=== PATIENT | female | born 1985 | race Caucasian/White ===

== ENCOUNTER 2019-01-18 14:51 | Emergency (ER) | payer BC ==
[~2019-01-18] VITALS: Ht 167.6 cm; Wt 136.0 kg
[~2019-01-18 14:51] MED LIST: AMBIEN10 MG PO; AMOXICILLIN875 MG OR; DIFLUCAN150 MG OR; FLEXERIL OR; NEXIUM40 M1 PO; NO HOME MEDS; PROZAC20 M1 PO; ULTRAM50 MG OR; [UNRECOGNIZED DRUG - OTHER] PO
[2019-01-18 16:37] LABS: HEMATOCRIT 38.7 % (37.0-47.0); HEMOGLOBIN 11.6 g/dl (12.0-16.0); IMMATURE GRANULOCYTES 0.2 % (0.0-5.0); MEAN CELL VOLUME 73.6 fL CALC (80.0-100.0); MEAN CORPUSCULAR HGB 22.1 pG CALC (26.0-32.0); NEUT# 4.72 thou/uL (2.00-7.15); RED BLOOD COUNT 5.26 mill/uL (4.20-5.60); RED CELL DISTRI WIDTH 22.2 % (11.5-15.5)
[2019-01-18 17:07] LABS: ALBUMIN 4.3 g/dL (3.2-5.0); ALKALINE PHOSPHATASE 63 u/l (38-126); ANION GAP 14 (6-22 (CALC)); BILIRUBIN, TOTAL 0.4 mg/dL (0.0-1.4); BUN 16 mg/dL (7-17); BUN/CREATININE RATIO 24 (12-20 (CALC)); CARBON DIOXIDE 25 mmol/l (22-30); CHLORIDE 106 mmol/l (95-108); CREATININE 0.6 mg/dL (0.5-1.0); GFR > 60 ML/MIN (>=60 (CALC)); GFR FOR AFR.AMER. > 60 ML/MIN (>=60 (CALC)); POTASSIUM 4.5 mmol/l (3.5-5.1); SGOT/AST 32 u/l (14-36); SODIUM 140 mmol/l (137-146); TOTAL PROTEIN 7.9 g/dL (6.3-8.2)
[2019-01-18] MEDS ORDERED: ONDANSETRON4 MG PO (17:52)
[2019-01-18] MEDS ORDERED: FIORICET PO (17:52)
[2019-01-18 18:00] VITALS: BP 126/82
== END 2019-01-18 17:45 | disposition home or self-care (01) | DRG 103 ==
LOC: ED 14:51
PROVIDERS: Emergency Medicine
DX: G43.909 Migraine, unspecified, not intractable, without status migrainosus (principal)

== ENCOUNTER 2022-04-11 12:23 | Emergency (ER) | payer BC ==
[~2022-04-11] VITALS: Ht 167.6 cm; Wt 154.5 kg
[~2022-04-11 12:23] MED LIST changes: +ABILIFY5 MG PO; +AJOVY SC; +DIFLUCAN150 MG PO; +ELETRIPTAN HYDR40 MG PO; +FIORICET PO; +LISINOPRIL10 MG PO; +MECLIZINE25 MG PO; +MUPIROCIN2 % EX; +ONDANSETRON4 MG PO; +REMERON15 MG PO; +REMERON30 MG PO; +SERTRALINE HCL100 MG PO; +SERTRALINE HYD150 MG PO; +SERTRALINE100 MG PO; +SILENOR3 MG PO; +SILENOR6 MG PO; +TOPAMAX25 MG PO; +TOPAMAX50 M1 PO; +VISTARIL25 MG PO; +VISTARIL50 MG PO; +WEGOVY0.25 MG SC; +WELLBUTRIN XL150 MG PO; +ZITHROMAX TRI-500 MG PO; +ZOLOFT50 MG PO; +[UNRECOGNIZED DRUG - OTHER] PO
[2022-04-11] MEDS ORDERED: ZYRTEC10 MG PO (15:24)
[2022-04-11] MEDS ORDERED: MEDDOSEPAK PO (15:24)
[2022-04-11] MEDS ORDERED: PROAIR HFA IN (15:24)
[2022-04-11 15:30] VITALS: BP 154/72
[2022-04-12] MEDS ORDERED: AZITHROMYCIN500 MG PO (16:52)
[2022-04-12] MEDS ORDERED: ALBUTEROL1 IN (16:52)
[2022-04-12] MEDS ORDERED: KEFLEX500 MG PO (16:52)
[2022-04-12] MEDS ORDERED: NEBULIZE1 IN (16:52)
== END 2022-04-11 15:36 | disposition home or self-care (01) | DRG 203 ==
LOC: ED 12:23
DX: J45.909 Unspecified asthma, uncomplicated (principal); M32.9 Systemic lupus erythematosus, unspecified; F41.8 Other specified anxiety disorders

== ENCOUNTER 2023-08-18 22:49 | Emergency (ER) | payer OTHER ==
[~2023-08-18] VITALS: Ht 167.6 cm; Wt 150.0 kg
[~2023-08-18 22:49] MED LIST changes: +ALBUTEROL1 IN; +AZITHROMYCIN500 MG PO; +DOXYCYCLINE100 MG PO; +KEFLEX500 MG PO; +MEDDOSEPAK PO; +MELOXICAM15 MG PO; +MIRTAZAPINE30 M1 PO; +MIRTAZAPINE45 M2 PO; +MOUNJARO2.5 MG SC; +NEBULIZE1 IN; +PEPCID20 MG PO; +PROAIR HFA IN; +TOPIRAMATE25 MG PO; +ZYRTEC10 MG PO
[2023-08-18 23:20] VITALS: BP 135/112
[2023-08-18] MEDS ORDERED: ACETAMINOPHEN 500 MG TAB PO ONE (23:20)
[2023-08-18] MEDS ORDERED: IBUPROFEN 600 MG/TAB PO ONE (23:20)
[2023-08-18 23:26] VITALS: BP 140/77
[2023-08-18 23:30] VITALS: BP 133/74
[2023-08-19] VITALS: BP 115/72
[2023-08-19 00:08] VITALS: BP 116/85
[2023-08-19 00:15] VITALS: BP 124/72
[2023-08-19 00:30] VITALS: BP 107/59
== END 2023-08-19 00:49 | disposition home or self-care (01) | DRG 563 ==
LOC: ED 22:49
DX: S93.401A Sprain of unspecified ligament of right ankle, initial encounter (principal); F41.9 Anxiety disorder, unspecified; F32.A Depression, unspecified; W19.XXXA Unspecified fall, initial encounter; Y92.009 Unspecified place in unspecified non-institutional (private) residence as the place of occurrence of the external cause

== ENCOUNTER 2024-05-10 16:59 | Emergency (ER) | payer OTHER ==
[~2024-05-10] VITALS: Ht 167.6 cm; Wt 151.5 kg
[2024-05-10 17:15] VITALS: BP 134/71
[2024-05-10 17:30] VITALS: BP 109/63
[2024-05-10 17:45] VITALS: BP 125/73
[2024-05-10 18:00] VITALS: BP 126/79
[2024-05-10 18:15] VITALS: BP 115/66
[2024-05-10 18:37] VITALS: BP 115/66
== END 2024-05-10 18:40 | disposition home or self-care (01) | DRG 563 ==
LOC: ED 16:59
DX: S43.401A Unspecified sprain of right shoulder joint, initial encounter (principal); M19.011 Primary osteoarthritis, right shoulder; F41.9 Anxiety disorder, unspecified; F32.A Depression, unspecified; W18.39XA Other fall on same level, initial encounter; Y92.009 Unspecified place in unspecified non-institutional (private) residence as the place of occurrence of the external cause